=== PATIENT | female | born 1995 | race Two or more races ===

== ENCOUNTER 2019-04-21 01:01 | Emergency (ER) | payer OTHER ==
[~2019-04-21] VITALS: Ht 160 cm; Wt 44.9 kg
== END 2019-04-21 10:28 | disposition home or self-care (01) ==
LOC: ER 01:01
DX: K52.89 Other specified noninfective gastroenteritis and colitis (principal); K62.5 Hemorrhage of anus and rectum; R19.7 Diarrhea, unspecified